=== PATIENT | male | born 1960 | race Caucasian/White ===

== ENCOUNTER → 2018-03-24 09:42 | Outpatient (CLI) | payer OTHER, SELFPAY ==
[2018-03-24 09:50] LABS: Bacteria Urine None Seen; RBC Urine None Seen (0-5/HPF); WBC Urine None Seen (0-5/HPF)
[2018-03-24 10:25] LABS: INR 1.8 (0.9-1.3); Prothrombin Time 19.4 SECONDS (10.1-12.7)
[2018-03-24 10:25] LABS: Add Manual Diff / Slide Review NO; Basophils Percent Auto 0.9 % (0-2); Eosinophils Percent Auto 0.8 % (2-4); Hematocrit 39.5 % (41-53); Hemoglobin 12.9 g/dL (13.5-17.5); Lymphocytes Percent Auto 21.8 % (25-40); Mean Corpuscular HGB Conc 32.6 % (30-36); Mean Corpuscular Hemoglobin 26.2 PG (26-34); Mean Corpuscular Volume 80.2 fL (80-100); Monocytes Percent Auto 13.1 % (3-14); Neutrophils Absolute Auto 2800 /uL (3000-5900); Neutrophils Percent Auto 63.4 % (50-75); Platelet Count 254 X10^3/uL (150-400); Red Blood Cell Count 4.92 X10^6/uL (4.5-5.9); Red Cell Distribution Width 14.3 % (11.6-14.8); White Blood Cell Count 4.5 X10^3/uL (4.5-11.0)
[2018-03-24 10:36] LABS: Appearance Urine UA CLEAR; Bilirubin Urine UA NEGATIVE (NEGATIVE); Color Urine UA YELLOW; Glucose Urine UA NEGATIVE (Normal); Ketones Urine UA NEGATIVE (NEGATIVE); Leukocyte Esterase Urine UA NEGATIVE (NEGATIVE); Nitrite Urine UA Negative (Negative); Occult Blood Urine UA TRACE-INTACT (Negative); Protein Urine UA NEGATIVE (Negative); Specific Gravity Urine UA 1.015 (1.000-1.035); Urobilinogen Urine UA 0.2 E.U./dL (0.2)
[2018-03-24 10:40] LABS: Alanine Aminotransferase 41 IU/L (21-72); Albumin 3.9 g/dL (3.5-5.0); Albumin Globulin Ratio 1.3 (1.0-2.8); Alkaline Phosphatase 55 U/L (38-126); Aspartate Aminotransferase 34 IU/L (17-59); BUN Creatinine Ratio 19.5 (6-22); Bilirubin Total 0.4 mg/dL (0.2-1.3); Blood Urea Nitrogen 41 mg/dL (9-20); Carbon Dioxide 28 mmol/L (22-32); Chloride 103 mmol/L (98-107); Estimated Glomerular Filt Rate 32.7 mL/min (>60); Globulin 2.9 g/dL (1.7-4.1); Glucose 95 mg/dL (70-100); HEMOLYSIS < 15 (0-50); Potassium 4.3 mmol/L (3.4-5.1); Sodium 139 mmol/L (137-145); Total Protein 6.8 g/dL (6.3-8.2)
[2018-03-24 10:42] LABS: Creatinine Urine Random 75.5 mg/dL
[2018-03-24 10:57] LABS: Protein (Total) Urine Random 25 mg/dL (0-12); Protein Creatinine Ratio Urine 0.33 GRAM/24H
[2018-03-27 11:05] LABS: Sirolimus 4.2 mcg/L (3.0-18.0)
== END ==
PROVIDERS: PCP Internal Medicine Nephrology; Visit Provider Internal Medicine Nephrology
DX: N18.3 Chronic kidney disease, stage 3 (moderate) (principal); D68.59 Other primary thrombophilia; Z94.0 Kidney transplant status
CPT/HCPCS: 36415; 80053; 80299; 81001; 82570; 84156; 85025; 85610; 87086

== ENCOUNTER → 2022-01-03 07:45 | Outpatient (CLI) | payer OTHER, SELFPAY ==
[2022-01-03 08:37] LABS: Add Manual Diff / Slide Review NO; Basophils Absolute Auto 0 /uL (0-100); Basophils Percent Auto 0.9 % (0-2); Eosinophils Absolute Auto 100 /uL (0-450); Eosinophils Percent Auto 1.3 % (2-4); Hemoglobin 12.7 g/dL (13.5-17.5); Lymphocytes Absolute Auto 1700 /uL (1100-4500); Mean Corpuscular HGB Conc 33.5 % (30-36); Mean Corpuscular Hemoglobin 27.7 PG (26-34); Mean Corpuscular Volume 82.7 fL (80-100); Monocytes Absolute Auto 800 /uL (0-900); Monocytes Percent Auto 14.2 % (3-14); Neutrophils Absolute Auto 2800 /uL (1500-7000); Neutrophils Percent Auto 52.6 % (50-75); Platelet Count 241 X10^3/uL (150-400); Red Cell Distribution Width 13.6 % (11.6-14.8); White Blood Cell Count 5.4 X10^3/uL (4.5-11.0)
[2022-01-03 08:41] LABS: INR 2.1 (0.9-1.3); Prothrombin Time 23.9 SECONDS (10.1-12.7)
[2022-01-03 09:20] LABS: Albumin 4.4 g/dL (3.5-5.0); BUN Creatinine Ratio 21.7 (6-22); Blood Urea Nitrogen 51 mg/dL (9-20); Carbon Dioxide 26 mmol/L (22-32); Chloride 104 mmol/L (98-107); Estimated Glomerular Filt Rate 28.3 mL/min (>60); Glucose 101 mg/dL (80-110); HEMOLYSIS < 15 (0-50); Phosphorous 3.4 mg/dL (2.3-3.7); Potassium 3.7 mmol/L (3.4-5.1); Sodium 137 mmol/L (137-145)
[2022-01-03 09:32] LABS: Vitamin D 25 Hydroxy (D3) 60.4 ng/mL (30.0-100.0)
[2022-01-03 10:36] LABS: Appearance Urine UA CLEAR; Bilirubin Urine UA NEGATIVE (NEGATIVE); Color Urine UA YELLOW; Glucose Urine UA NEGATIVE (Negative); Ketones Urine UA NEGATIVE (NEGATIVE); Leukocyte Esterase Urine UA NEGATIVE (NEGATIVE); Nitrite Urine UA NEGATIVE (Negative); Occult Blood Urine UA TRACE-INTACT (Negative); Protein Urine UA TRACE (Negative); Specific Gravity Urine UA 1.015 (1.000-1.035); Urobilinogen Urine UA 0.2 E.U./dL (0.2); pH Urine UA 5.5 (4.5-8.0)
[2022-01-03 10:58] LABS: Bacteria Urine None Seen; Culture Indicated Urine Cult Not Indicated; RBC Urine 1-5/HPF (0-5/HPF); WBC Urine None Seen (0-5/HPF)
[2022-01-03 13:05] LABS: Creatinine Urine Random 77.6 mg/dL; Protein (Total) Urine Random 33 mg/dL (0-12); Protein Creatinine Ratio Urine 0.42 GRAM/24H
[2022-01-03 16:37] LABS: Sirolimus 3.7 ng/mL (3.0-20.0)
[2022-01-04 06:15] LABS: Parathyroid Hormone Int 68 pg/mL (15-65)
== END ==
PROVIDERS: PCP Internal Medicine Nephrology; Referring Provider Internal Medicine Nephrology; Visit Provider Internal Medicine Nephrology
DX: Z94.0 Kidney transplant status (principal); N25.81 Secondary hyperparathyroidism of renal origin; D68.59 Other primary thrombophilia
CPT/HCPCS: 36415; 80069; 80195; 81001; 82306; 82570; 83970; 84156; 85025; 85610

== ENCOUNTER → 2022-03-07 09:33 | Outpatient (CLI) | payer OTHER, SELFPAY ==
[2022-03-07 10:39] LABS: Add Manual Diff / Slide Review NO; Basophils Absolute Auto 0 /uL (0-100); Basophils Percent Auto 0.7 % (0-2); Eosinophils Absolute Auto 100 /uL (0-450); Eosinophils Percent Auto 1.7 % (2-4); Hemoglobin 13.2 g/dL (13.5-17.5); Lymphocytes Absolute Auto 1400 /uL (1100-4500); Lymphocytes Percent Auto 28.3 % (25-40); Mean Corpuscular Hemoglobin 27.3 PG (26-34); Mean Corpuscular Volume 82.7 fL (80-100); Monocytes Absolute Auto 700 /uL (0-900); Monocytes Percent Auto 14.1 % (3-14); Neutrophils Absolute Auto 2700 /uL (1500-7000); Neutrophils Percent Auto 55.2 % (50-75); Platelet Count 241 X10^3/uL (150-400); Red Blood Cell Count 4.84 X10^6/uL (4.5-5.9); White Blood Cell Count 4.9 X10^3/uL (4.5-11.0)
[2022-03-07 10:50] LABS: Albumin 4.3 g/dL (3.5-5.0); BUN Creatinine Ratio 18.1 (6-22); Blood Urea Nitrogen 42 mg/dL (9-20); Calcium 8.9 mg/dL (8.4-10.2); Carbon Dioxide 28 mmol/L (22-32); Chloride 102 mmol/L (98-107); Estimated Glomerular Filt Rate 31 mL/min (>60); Glucose 96 mg/dL (80-110); HEMOLYSIS < 15 (0-50); Phosphorous 2.7 mg/dL (2.3-3.7); Potassium 3.8 mmol/L (3.4-5.1); Sodium 133 mmol/L (137-145)
[2022-03-07 10:59] LABS: Appearance Urine UA CLEAR; Bilirubin Urine UA NEGATIVE (NEGATIVE); Color Urine UA YELLOW; Glucose Urine UA NEGATIVE (Negative); Ketones Urine UA NEGATIVE (NEGATIVE); Leukocyte Esterase Urine UA NEGATIVE (NEGATIVE); Nitrite Urine UA NEGATIVE (Negative); Occult Blood Urine UA TRACE-INTACT (Negative); Protein Urine UA TRACE (Negative); Urobilinogen Urine UA 0.2 E.U./dL (0.2); pH Urine UA 5.5 (4.5-8.0)
[2022-03-07 11:01] LABS: INR 2.5 (0.9-1.3); Prothrombin Time 28.4 SECONDS (10.1-12.7)
[2022-03-07 11:27] LABS: Creatinine Urine Random 76.7 mg/dL
[2022-03-07 11:32] LABS: Microalbumi Creatinin Ratio Ur 108.2 ug/mg CR (<30); Microalbumin Urine Random 8.3 mg/dL (0-1.6)
[2022-03-07 11:49] LABS: Bacteria Urine None Seen; Culture Indicated Urine Cult Not Indicated; RBC Urine None Seen (0-5/HPF); Squamous Epithelial Cell Urine 0-1 /HPF (0-5/HPF); WBC Urine None Seen (0-5/HPF)
[2022-03-07 15:12] LABS: Vitamin D 25 Hydroxy (D3) 60.9 ng/mL (30.0-100.0)
[2022-03-08 07:36] LABS: Parathyroid Hormone Int 56 pg/mL (15-65)
[2022-03-08 10:02] LABS: Sirolimus 3.3 ng/mL (3.0-20.0)
== END ==
PROVIDERS: PCP Internal Medicine Nephrology; Referring Provider Internal Medicine Nephrology; Visit Provider Internal Medicine Nephrology
DX: Z94.0 Kidney transplant status (principal); N25.81 Secondary hyperparathyroidism of renal origin; D68.59 Other primary thrombophilia
CPT/HCPCS: 36415; 80069; 80195; 81001; 82043; 82306; 82570; 83970; 85025; 85610

== ENCOUNTER → 2022-06-16 07:31 | Outpatient (CLI) | payer OTHER, SELFPAY ==
[2022-06-16 10:31] LABS: Add Manual Diff / Slide Review NO; Basophils Absolute Auto 100 /uL (0-100); Eosinophils Absolute Auto 100 /uL (0-450); Eosinophils Percent Auto 1.5 % (2-4); Hematocrit 38.7 % (41-53); Lymphocytes Absolute Auto 1500 /uL (1100-4500); Lymphocytes Percent Auto 21.7 % (25-40); Mean Corpuscular HGB Conc 33.5 % (30-36); Mean Corpuscular Hemoglobin 27.3 PG (26-34); Mean Corpuscular Volume 81.5 fL (80-100); Monocytes Absolute Auto 900 /uL (0-900); Monocytes Percent Auto 12.5 % (3-14); Neutrophils Absolute Auto 4300 /uL (1500-7000); Neutrophils Percent Auto 63.3 % (50-75); Platelet Count 273 X10^3/uL (150-400); Red Blood Cell Count 4.75 X10^6/uL (4.5-5.9); Red Cell Distribution Width 13.8 % (11.6-14.8); White Blood Cell Count 6.8 X10^3/uL (4.5-11.0)
[2022-06-16 10:36] LABS: INR 1.1 (0.9-1.3); Prothrombin Time 12.1 SECONDS (10.1-12.7)
[2022-06-16 10:43] LABS: Appearance Urine UA CLEAR; Bilirubin Urine UA NEGATIVE (NEGATIVE); Color Urine UA YELLOW; Glucose Urine UA NEGATIVE (Negative); Ketones Urine UA NEGATIVE (NEGATIVE); Leukocyte Esterase Urine UA NEGATIVE (NEGATIVE); Nitrite Urine UA NEGATIVE (Negative); Occult Blood Urine UA TRACE-INTACT (Negative); Protein Urine UA TRACE (Negative); Urobilinogen Urine UA 0.2 E.U./dL (0.2); pH Urine UA 5.5 (4.5-8.0)
[2022-06-16 11:24] LABS: Creatinine Urine Random 64.6 mg/dL; Protein (Total) Urine Random 34 mg/dL (0-12); Protein Creatinine Ratio Urine 0.52 GRAM/24H
[2022-06-16 11:26] LABS: Bacteria Urine Occasional (0-1); Culture Indicated Urine Cult Not Indicated; RBC Urine None Seen (0-5/HPF); Squamous Epithelial Cell Urine None Seen (0-5/HPF); WBC Urine None Seen (0-5/HPF)
[2022-06-16 11:29] LABS: BUN Creatinine Ratio 20.1 (6-22); Blood Urea Nitrogen 45 mg/dL (9-20); Calcium 9.3 mg/dL (8.4-10.2); Carbon Dioxide 25 mmol/L (22-32); Chloride 101 mmol/L (98-107); Estimated Glomerular Filt Rate 33 mL/min (>60); Glucose 91 mg/dL (80-110); HEMOLYSIS < 15 (0-50); Potassium 3.8 mmol/L (3.4-5.1); Sodium 137 mmol/L (137-145)
[2022-06-17 09:30] LABS: Sirolimus 5.9 ng/mL (3.0-20.0)
== END ==
PROVIDERS: PCP Internal Medicine Nephrology; Referring Provider Internal Medicine Nephrology; Visit Provider Internal Medicine Nephrology
DX: Z94.0 Kidney transplant status (principal); D68.59 Other primary thrombophilia
CPT/HCPCS: 36415; 80069; 80195; 81001; 82570; 84156; 85025; 85610

== ENCOUNTER → 2022-07-14 09:43 | Outpatient (CLI) | payer OTHER, SELFPAY ==
[2022-07-14 10:49] LABS: Appearance Urine UA CLEAR; Bilirubin Urine UA NEGATIVE (NEGATIVE); Color Urine UA YELLOW; Glucose Urine UA NEGATIVE (Negative); Ketones Urine UA NEGATIVE (NEGATIVE); Leukocyte Esterase Urine UA NEGATIVE (NEGATIVE); Nitrite Urine UA NEGATIVE (Negative); Occult Blood Urine UA TRACE-INTACT (Negative); Protein Urine UA TRACE (Negative); Urobilinogen Urine UA 0.2 E.U./dL (0.2)
[2022-07-14 11:00] LABS: Add Manual Diff / Slide Review NO; Bacteria Urine Occasional (0-1); Basophils Absolute Auto 0 /uL (0-100); Basophils Percent Auto 0.7 % (0-2); Culture Indicated Urine Specimen Cultured; Eosinophils Absolute Auto 100 /uL (0-450); Eosinophils Percent Auto 1.4 % (2-4); Hemoglobin 12.9 g/dL (13.5-17.5); Lymphocytes Absolute Auto 1300 /uL (1100-4500); Lymphocytes Percent Auto 25.9 % (25-40); Mean Corpuscular HGB Conc 33.1 % (30-36); Mean Corpuscular Volume 81.6 fL (80-100); Monocytes Absolute Auto 700 /uL (0-900); Monocytes Percent Auto 14.3 % (3-14); Neutrophils Absolute Auto 2800 /uL (1500-7000); Neutrophils Percent Auto 57.7 % (50-75); Platelet Count 230 X10^3/uL (150-400); RBC Urine 0-1/HPF (0-5/HPF); Red Blood Cell Count 4.78 X10^6/uL (4.5-5.9); Red Cell Distribution Width 14.4 % (11.6-14.8); WBC Urine None Seen (0-5/HPF); White Blood Cell Count 4.9 X10^3/uL (4.5-11.0)
[2022-07-14 11:06] LABS: Albumin 4.1 g/dL (3.5-5.0); BUN Creatinine Ratio 18.5 (6-22); Blood Urea Nitrogen 42 mg/dL (9-20); Calcium 9.5 mg/dL (8.4-10.2); Carbon Dioxide 25 mmol/L (22-32); Chloride 102 mmol/L (98-107); Estimated Glomerular Filt Rate 32 mL/min (>60); Glucose 97 mg/dL (80-110); HEMOLYSIS < 15 (0-50); Phosphorous 3.4 mg/dL (2.3-3.7); Potassium 3.9 mmol/L (3.4-5.1); Sodium 137 mmol/L (137-145)
[2022-07-14 11:23] LABS: Vitamin D 25 Hydroxy (D3) 45.9 ng/mL (30.0-100.0)
[2022-07-14 11:36] LABS: Creatinine Urine Random 81.9 mg/dL; Protein (Total) Urine Random 31 mg/dL (0-12); Protein Creatinine Ratio Urine 0.37 GRAM/24H
[2022-07-15 07:59] LABS: Parathyroid Hormone Int 29 pg/mL (15-65)
[2022-07-15 15:09] LABS: Sirolimus 4.5 ng/mL (3.0-20.0)
== END ==
PROVIDERS: PCP Internal Medicine Nephrology; Referring Provider Internal Medicine Nephrology; Visit Provider Internal Medicine Nephrology
DX: N25.81 Secondary hyperparathyroidism of renal origin (principal); D68.59 Other primary thrombophilia; Z94.0 Kidney transplant status
CPT/HCPCS: 36415; 80069; 80195; 81001; 82306; 82570; 83970; 84156; 85025; 85610; 87086

== ENCOUNTER → 2022-09-08 07:35 | Outpatient (CLI) | payer OTHER, SELFPAY ==
[2022-09-08 09:05] LABS: Add Manual Diff / Slide Review NO; Basophils Absolute Auto 0 /uL (0-100); Basophils Percent Auto 0.6 % (0-2); Eosinophils Absolute Auto 100 /uL (0-450); Eosinophils Percent Auto 1.3 % (2-4); Hematocrit 39.5 % (41-53); Lymphocytes Absolute Auto 1700 /uL (1100-4500); Lymphocytes Percent Auto 30.3 % (25-40); Mean Corpuscular HGB Conc 32.8 % (30-36); Mean Corpuscular Hemoglobin 26.8 PG (26-34); Mean Corpuscular Volume 81.8 fL (80-100); Monocytes Absolute Auto 800 /uL (0-900); Monocytes Percent Auto 14.3 % (3-14); Neutrophils Absolute Auto 3000 /uL (1500-7000); Neutrophils Percent Auto 53.5 % (50-75); Platelet Count 229 X10^3/uL (150-400); Red Blood Cell Count 4.83 X10^6/uL (4.5-5.9); White Blood Cell Count 5.6 X10^3/uL (4.5-11.0)
[2022-09-08 09:11] LABS: INR 2.8 (0.9-1.3); Prothrombin Time 32.7 SECONDS (10.1-12.7)
[2022-09-08 09:20] LABS: BUN Creatinine Ratio 17.5 (6-22); Blood Urea Nitrogen 44 mg/dL (9-20); Calcium 9.1 mg/dL (8.4-10.2); Carbon Dioxide 27 mmol/L (22-32); Chloride 103 mmol/L (98-107); Estimated Glomerular Filt Rate 28 mL/min (>60); Glucose 96 mg/dL (80-110); HEMOLYSIS < 15 (0-50); Phosphorous 2.9 mg/dL (2.3-3.7); Sodium 138 mmol/L (137-145)
[2022-09-08 09:50] LABS: Creatinine Urine Random 95.8 mg/dL; Protein (Total) Urine Random 34 mg/dL (0-12); Protein Creatinine Ratio Urine 0.35 GRAM/24H
[2022-09-08 09:54] LABS: Appearance Urine UA CLEAR; Bilirubin Urine UA NEGATIVE (NEGATIVE); Color Urine UA YELLOW; Glucose Urine UA NEGATIVE (Negative); Ketones Urine UA NEGATIVE (NEGATIVE); Leukocyte Esterase Urine UA NEGATIVE (NEGATIVE); Nitrite Urine UA NEGATIVE (Negative); Occult Blood Urine UA TRACE-LYSED (Negative); Protein Urine UA 1+ (Negative); Urobilinogen Urine UA 0.2 E.U./dL (0.2); pH Urine UA 5.5 (4.5-8.0)
[2022-09-08 09:59] LABS: Bacteria Urine None Seen; Culture Indicated Urine Cult Not Indicated; RBC Urine None Seen (0-5/HPF); Urine Comments Microscopic Normal; WBC Urine None Seen (0-5/HPF)
[2022-09-09 09:12] LABS: Sirolimus 3.7 ng/mL (3.0-20.0)
== END ==
PROVIDERS: PCP Internal Medicine Nephrology; Referring Provider Internal Medicine Nephrology; Visit Provider Internal Medicine Nephrology
DX: Z94.0 Kidney transplant status (principal); N25.81 Secondary hyperparathyroidism of renal origin; D68.59 Other primary thrombophilia
CPT/HCPCS: 36415; 80069; 80195; 81001; 82570; 84156; 85025; 85610

== ENCOUNTER → 2022-10-19 08:27 | Outpatient (CLI) | payer OTHER, SELFPAY ==
[2022-10-19 09:23] LABS: Add Manual Diff / Slide Review NO; Basophils Absolute Auto 100 /uL (0-100); Basophils Percent Auto 0.9 % (0-2); Eosinophils Absolute Auto 500 /uL (0-450); Eosinophils Percent Auto 7.5 % (2-4); Hematocrit 40.9 % (41-53); Hemoglobin 13.3 g/dL (13.5-17.5); Lymphocytes Absolute Auto 1900 /uL (1100-4500); Lymphocytes Percent Auto 30.8 % (25-40); Mean Corpuscular HGB Conc 32.6 % (30-36); Mean Corpuscular Hemoglobin 26.8 PG (26-34); Monocytes Absolute Auto 900 /uL (0-900); Monocytes Percent Auto 14.8 % (3-14); Neutrophils Absolute Auto 2800 /uL (1500-7000); Platelet Count 265 X10^3/uL (150-400); Red Blood Cell Count 4.99 X10^6/uL (4.5-5.9); Red Cell Distribution Width 14.7 % (11.6-14.8)
[2022-10-19 09:29] LABS: INR 1.7 (0.9-1.3)
[2022-10-19 09:39] LABS: Appearance Urine UA CLEAR; Bilirubin Urine UA NEGATIVE (NEGATIVE); Color Urine UA YELLOW; Glucose Urine UA NEGATIVE (Negative); Ketones Urine UA NEGATIVE (NEGATIVE); Leukocyte Esterase Urine UA NEGATIVE (NEGATIVE); Nitrite Urine UA NEGATIVE (Negative); Occult Blood Urine UA TRACE-LYSED (Negative); Protein Urine UA TRACE (Negative); Urobilinogen Urine UA 0.2 E.U./dL (0.2)
[2022-10-19 09:40] LABS: BUN Creatinine Ratio 19.7 (6-22); Blood Urea Nitrogen 48 mg/dL (9-20); Calcium 9.6 mg/dL (8.4-10.2); Carbon Dioxide 29 mmol/L (22-32); Chloride 101 mmol/L (98-107); Estimated Glomerular Filt Rate 29 mL/min (>60); Glucose 88 mg/dL (80-110); HEMOLYSIS < 15 (0-50); Phosphorous 3.1 mg/dL (2.3-3.7); Sodium 137 mmol/L (137-145)
[2022-10-19 09:57] LABS: Bacteria Urine None Seen; Culture Indicated Urine Cult Not Indicated; RBC Urine None Seen (0-5/HPF); Urine Comments Microscopic Normal; WBC Urine None Seen (0-5/HPF)
[2022-10-19 16:08] LABS: Creatinine Urine Random 73.5 mg/dL; Protein (Total) Urine Random 33 mg/dL (0-12); Protein Creatinine Ratio Urine 0.44 GRAM/24H
[2022-10-20 10:35] LABS: Sirolimus 5.4 ng/mL (3.0-20.0)
[2022-10-21 17:48] LABS: Albumin 4.3 g/dL (3.5-5.0)
== END ==
PROVIDERS: PCP Internal Medicine Nephrology; Referring Provider Internal Medicine Nephrology; Visit Provider Internal Medicine Nephrology
DX: N25.81 Secondary hyperparathyroidism of renal origin (principal); D68.59 Other primary thrombophilia; Z94.0 Kidney transplant status
CPT/HCPCS: 36415; 80069; 80195; 81001; 82570; 84156; 85025; 85610

== ENCOUNTER → 2022-11-22 07:39 | Outpatient (CLI) | payer OTHER, SELFPAY ==
[2022-11-22 08:29] LABS: Appearance Urine UA CLEAR; Bilirubin Urine UA NEGATIVE (NEGATIVE); Color Urine UA YELLOW; Glucose Urine UA NEGATIVE (Negative); Ketones Urine UA NEGATIVE (NEGATIVE); Leukocyte Esterase Urine UA NEGATIVE (NEGATIVE); Nitrite Urine UA NEGATIVE (Negative); Occult Blood Urine UA TRACE-INTACT (Negative); Protein Urine UA TRACE (Negative); Specific Gravity Urine UA 1.015 (1.000-1.035); Urobilinogen Urine UA 0.2 E.U./dL (0.2)
[2022-11-22 08:36] LABS: Bacteria Urine None Seen; Culture Indicated Urine Cult Not Indicated; RBC Urine None Seen (0-5/HPF); Urine Comments Microscopic Normal; WBC Urine None Seen (0-5/HPF)
[2022-11-22 09:06] LABS: Creatinine Urine Random 69.1 mg/dL; Protein (Total) Urine Random 38 mg/dL (0-12); Protein Creatinine Ratio Urine 0.54 GRAM/24H
[2022-11-22 09:28] LABS: Add Manual Diff / Slide Review NO; Basophils Absolute Auto 0 /uL (0-100); Basophils Percent Auto 0.7 % (0-2); Eosinophils Absolute Auto 100 /uL (0-450); Eosinophils Percent Auto 1.3 % (2-4); Hematocrit 39.9 % (41-53); Hemoglobin 13.1 g/dL (13.5-17.5); Lymphocytes Absolute Auto 1600 /uL (1100-4500); Mean Corpuscular HGB Conc 32.8 % (30-36); Mean Corpuscular Hemoglobin 26.8 PG (26-34); Mean Corpuscular Volume 81.7 fL (80-100); Monocytes Absolute Auto 700 /uL (0-900); Monocytes Percent Auto 11.8 % (3-14); Neutrophils Absolute Auto 3400 /uL (1500-7000); Neutrophils Percent Auto 59.2 % (50-75); Platelet Count 271 X10^3/uL (150-400); Red Blood Cell Count 4.89 X10^6/uL (4.5-5.9); Red Cell Distribution Width 15.1 % (11.6-14.8); White Blood Cell Count 5.8 X10^3/uL (4.5-11.0)
[2022-11-22 09:46] LABS: Albumin 4.3 g/dL (3.5-5.0); HEMOLYSIS < 15 (0-50); INR 2.2 (0.9-1.3); Prothrombin Time 25.8 SECONDS (10.1-12.7)
[2022-11-22 10:02] LABS: Vitamin D 25 Hydroxy (D3) 53.4 ng/mL (30.0-100.0)
[2022-11-23 09:26] LABS: Parathyroid Hormone Int 48 pg/mL (15-65)
[2022-11-23 17:36] LABS: Sirolimus 4.9 ng/mL (3.0-20.0)
[2022-11-23 17:43] LABS: BUN Creatinine Ratio 22.1 (6-22); Blood Urea Nitrogen 52 mg/dL (9-20); Calcium 9.5 mg/dL (8.4-10.2); Carbon Dioxide 26 mmol/L (22-32); Chloride 102 mmol/L (98-107); Estimated Glomerular Filt Rate 31 mL/min (>60); Glucose 95 mg/dL (80-110); Potassium 3.7 mmol/L (3.4-5.1); Sodium 138 mmol/L (137-145)
== END ==
PROVIDERS: PCP Internal Medicine Nephrology; Referring Provider Internal Medicine Nephrology; Visit Provider Internal Medicine Nephrology
DX: Z94.0 Kidney transplant status (principal); N25.81 Secondary hyperparathyroidism of renal origin; D68.59 Other primary thrombophilia
CPT/HCPCS: 36415; 80069; 80076; 80195; 81001; 82306; 82570; 83970; 84156; 85025; 85610

== ENCOUNTER → 2023-04-11 07:32 | Outpatient (CLI) | payer OTHER, SELFPAY ==
[2023-04-11 07:59] LABS: Add Manual Diff / Slide Review NO; Basophils Absolute Auto 100 /uL (0-100); Basophils Percent Auto 1.4 % (0-2); Eosinophils Absolute Auto 100 /uL (0-450); Eosinophils Percent Auto 2.6 % (2-4); Hematocrit 40.4 % (41-53); Hemoglobin 13.3 g/dL (13.5-17.5); Lymphocytes Absolute Auto 1600 /uL (1100-4500); Lymphocytes Percent Auto 34.1 % (25-40); Mean Corpuscular HGB Conc 32.9 % (30-36); Mean Corpuscular Hemoglobin 26.8 PG (26-34); Mean Corpuscular Volume 81.4 fL (80-100); Monocytes Absolute Auto 600 /uL (0-900); Monocytes Percent Auto 13.6 % (3-14); Neutrophils Absolute Auto 2200 /uL (1500-7000); Neutrophils Percent Auto 48.3 % (50-75); Platelet Count 233 X10^3/uL (150-400); Red Blood Cell Count 4.96 X10^6/uL (4.5-5.9); Red Cell Distribution Width 14.7 % (11.6-14.8); White Blood Cell Count 4.6 X10^3/uL (4.5-11.0)
[2023-04-11 08:14] LABS: Appearance Urine UA CLEAR; Bilirubin Urine UA NEGATIVE (NEGATIVE); Color Urine UA YELLOW; Glucose Urine UA NEGATIVE (Negative); Ketones Urine UA NEGATIVE (NEGATIVE); Leukocyte Esterase Urine UA NEGATIVE (NEGATIVE); Nitrite Urine UA NEGATIVE (Negative); Occult Blood Urine UA TRACE-INTACT (Negative); Protein Urine UA TRACE (Negative); Urobilinogen Urine UA 0.2 E.U./dL (0.2); pH Urine UA 5.5 (4.5-8.0)
[2023-04-11 08:16] LABS: INR 2.1 (0.9-1.3); Prothrombin Time 24.3 SECONDS (10.1-12.7)
[2023-04-11 09:00] LABS: Bacteria Urine None Seen; Culture Indicated Urine Cult Not Indicated; RBC Urine None Seen (0-5/HPF); Squamous Epithelial Cell Urine None Seen (0-5/HPF); Urine Comments Microscopic Normal; WBC Urine None Seen (0-5/HPF)
[2023-04-11 09:01] LABS: Albumin 4.1 g/dL (3.5-5.0); BUN Creatinine Ratio 17.8 (6-22); Blood Urea Nitrogen 46 mg/dL (9-20); Calcium 9.4 mg/dL (8.4-10.2); Carbon Dioxide 28 mmol/L (22-32); Chloride 102 mmol/L (98-107); Estimated Glomerular Filt Rate 27 mL/min (>60); Glucose 99 mg/dL (80-110); HEMOLYSIS < 15 (0-50); Phosphorous 3.4 mg/dL (2.3-3.7); Potassium 3.6 mmol/L (3.4-5.1); Sodium 137 mmol/L (137-145)
[2023-04-11 09:04] LABS: Creatinine Urine Random 74.4 mg/dL; Protein (Total) Urine Random 30 mg/dL (0-12)
[2023-05-01 13:05] LABS: Sirolimus 6.1
== END ==
PROVIDERS: PCP Internal Medicine Nephrology; Referring Provider Internal Medicine Nephrology; Visit Provider Internal Medicine Nephrology
DX: Z94.0 Kidney transplant status (principal); D68.59 Other primary thrombophilia
CPT/HCPCS: 36415; 80069; 80195; 81001; 82570; 84156; 85025; 85610

== ENCOUNTER → 2023-06-08 09:55 | Outpatient (CLI) | payer OTHER, SELFPAY ==
[2023-06-08 10:47] LABS: Add Manual Diff / Slide Review NO; Basophils Absolute Auto 0 /uL (0-100); Basophils Percent Auto 0.7 % (0-2); Eosinophils Absolute Auto 100 /uL (0-450); Eosinophils Percent Auto 1.4 % (2-4); Hematocrit 41.3 % (41-53); Hemoglobin 13.6 g/dL (13.5-17.5); Lymphocytes Absolute Auto 1700 /uL (1100-4500); Lymphocytes Percent Auto 31.1 % (25-40); Mean Corpuscular HGB Conc 32.9 % (30-36); Mean Corpuscular Hemoglobin 27.4 PG (26-34); Mean Corpuscular Volume 83.1 fL (80-100); Monocytes Absolute Auto 800 /uL (0-900); Monocytes Percent Auto 15.6 % (3-14); Neutrophils Absolute Auto 2700 /uL (1500-7000); Neutrophils Percent Auto 51.2 % (50-75); Platelet Count 252 X10^3/uL (150-400); Red Blood Cell Count 4.97 X10^6/uL (4.5-5.9); Red Cell Distribution Width 14.9 % (11.6-14.8); White Blood Cell Count 5.4 X10^3/uL (4.5-11.0)
[2023-06-08 10:53] LABS: INR 2.8 (0.9-1.3); Prothrombin Time 32.4 SECONDS (10.1-12.7)
[2023-06-08 11:00] LABS: Creatinine Urine Random 78.2 mg/dL; Protein (Total) Urine Random 46 mg/dL (0-12); Protein Creatinine Ratio Urine 0.58 GRAM/24H
[2023-06-08 11:05] LABS: Albumin 4.3 g/dL (3.5-5.0); BUN Creatinine Ratio 18.7 (6-22); Blood Urea Nitrogen 41 mg/dL (9-20); Calcium 9.4 mg/dL (8.4-10.2); Carbon Dioxide 29 mmol/L (22-32); Chloride 102 mmol/L (98-107); Estimated Glomerular Filt Rate 33 mL/min (>60); Glucose 98 mg/dL (80-110); HEMOLYSIS < 15 (0-50); Phosphorous 2.6 mg/dL (2.3-3.7); Potassium 3.6 mmol/L (3.4-5.1); Sodium 137 mmol/L (137-145)
[2023-06-08 11:08] LABS: Appearance Urine UA CLEAR; Bilirubin Urine UA NEGATIVE (NEGATIVE); Color Urine UA YELLOW; Glucose Urine UA NEGATIVE (Negative); Ketones Urine UA NEGATIVE (NEGATIVE); Leukocyte Esterase Urine UA NEGATIVE (NEGATIVE); Nitrite Urine UA NEGATIVE (Negative); Occult Blood Urine UA NEGATIVE (Negative); Protein Urine UA TRACE (Negative); Specific Gravity Urine UA 1.015 (1.000-1.035); Urobilinogen Urine UA 0.2 E.U./dL (0.2)
[2023-06-08 11:53] LABS: Bacteria Urine Occasional (0-1); Culture Indicated Urine Cult Not Indicated; RBC Urine None Seen (0-5/HPF); Squamous Epithelial Cell Urine None Seen (0-5/HPF); WBC Urine None Seen (0-5/HPF)
== END ==
PROVIDERS: PCP Internal Medicine Nephrology; Referring Provider Internal Medicine Nephrology; Visit Provider Internal Medicine Nephrology
DX: Z94.0 Kidney transplant status (principal); D68.59 Other primary thrombophilia
CPT/HCPCS: 36415; 80069; 80195; 81001; 82570; 84156; 85025; 85610

== ENCOUNTER → 2023-07-27 09:41 | Outpatient (CLI) | payer OTHER, SELFPAY ==
[2023-07-27 10:19] LABS: INR 2.1 (0.9-1.3); Prothrombin Time 24.8 SECONDS (10.1-12.7)
[2023-07-27 10:22] LABS: Add Manual Diff / Slide Review NO; Basophils Absolute Auto 0 /uL (0-100); Basophils Percent Auto 0.9 % (0-2); Eosinophils Absolute Auto 100 /uL (0-450); Hematocrit 40.1 % (41-53); Hemoglobin 13.1 g/dL (13.5-17.5); Lymphocytes Absolute Auto 1500 /uL (1100-4500); Lymphocytes Percent Auto 28.2 % (25-40); Mean Corpuscular HGB Conc 32.6 % (30-36); Mean Corpuscular Hemoglobin 26.9 PG (26-34); Mean Corpuscular Volume 82.6 fL (80-100); Monocytes Absolute Auto 900 /uL (0-900); Monocytes Percent Auto 15.8 % (3-14); Neutrophils Absolute Auto 2900 /uL (1500-7000); Neutrophils Percent Auto 54.1 % (50-75); Platelet Count 240 X10^3/uL (150-400); Red Blood Cell Count 4.85 X10^6/uL (4.5-5.9); Red Cell Distribution Width 14.7 % (11.6-14.8); White Blood Cell Count 5.4 X10^3/uL (4.5-11.0)
[2023-07-27 10:52] LABS: Appearance Urine UA CLEAR; Bilirubin Urine UA NEGATIVE (NEGATIVE); Color Urine UA YELLOW; Glucose Urine UA NEGATIVE (Negative); Ketones Urine UA NEGATIVE (NEGATIVE); Leukocyte Esterase Urine UA NEGATIVE (NEGATIVE); Nitrite Urine UA NEGATIVE (Negative); Occult Blood Urine UA NEGATIVE (Negative); Protein Urine UA TRACE (Negative); Urobilinogen Urine UA 0.2 E.U./dL (0.2)
[2023-07-27 10:57] LABS: Bacteria Urine None Seen; Culture Indicated Urine Cult Not Indicated; RBC Urine None Seen (0-5/HPF); Squamous Epithelial Cell Urine None Seen (0-5/HPF); WBC Urine None Seen (0-5/HPF)
[2023-07-27 11:01] LABS: Protein (Total) Urine Random 38 mg/dL (0-12)
[2023-07-27 11:09] LABS: Creatinine Urine Random 81.1 mg/dL; Protein Creatinine Ratio Urine 0.46 GRAM/24H
[2023-07-27 12:00] LABS: Albumin 4.1 g/dL (3.5-5.0); BUN Creatinine Ratio 22.3 (6-22); Blood Urea Nitrogen 46 mg/dL (9-20); Calcium 9.8 mg/dL (8.4-10.2); Carbon Dioxide 25 mmol/L (22-32); Chloride 104 mmol/L (98-107); Estimated Glomerular Filt Rate 36 mL/min (>60); Glucose 89 mg/dL (80-110); HEMOLYSIS < 15 (0-50); Phosphorous 2.6 mg/dL (2.3-3.7); Potassium 3.8 mmol/L (3.4-5.1); Sodium 137 mmol/L (137-145)
[2023-08-10 12:16] LABS: Sirolimus 4.8
== END ==
PROVIDERS: PCP Internal Medicine Nephrology; Referring Provider Internal Medicine Nephrology; Visit Provider Internal Medicine Nephrology
DX: Z94.0 Kidney transplant status (principal); D68.59 Other primary thrombophilia
CPT/HCPCS: 36415; 80069; 80195; 81001; 82570; 84156; 85025; 85610

== ENCOUNTER → 2023-09-07 07:31 | Outpatient (CLI) | payer OTHER, SELFPAY ==
[2023-09-07 08:39] LABS: INR 2.5 (0.9-1.3)
[2023-09-07 08:46] LABS: Albumin 4.3 g/dL (3.5-5.0); BUN Creatinine Ratio 18.1 (6-22); Blood Urea Nitrogen 39 mg/dL (9-20); Calcium 9.6 mg/dL (8.4-10.2); Carbon Dioxide 27 mmol/L (22-32); Chloride 100 mmol/L (98-107); Estimated Glomerular Filt Rate 34 mL/min (>60); Glucose 93 mg/dL (80-110); HEMOLYSIS < 15 (0-50); Phosphorous 2.6 mg/dL (2.3-3.7); Potassium 3.6 mmol/L (3.4-5.1); Sodium 135 mmol/L (137-145)
[2023-09-07 08:55] LABS: Add Manual Diff / Slide Review NO; Basophils Absolute Auto 0 /uL (0-100); Basophils Percent Auto 0.7 % (0-2); Eosinophils Absolute Auto 100 /uL (0-450); Eosinophils Percent Auto 1.2 % (2-4); Hematocrit 41.1 % (41-53); Hemoglobin 13.6 g/dL (13.5-17.5); Lymphocytes Absolute Auto 2000 /uL (1100-4500); Lymphocytes Percent Auto 38.2 % (25-40); Mean Corpuscular Volume 81.8 fL (80-100); Monocytes Absolute Auto 700 /uL (0-900); Monocytes Percent Auto 13.4 % (3-14); Neutrophils Absolute Auto 2400 /uL (1500-7000); Neutrophils Percent Auto 46.5 % (50-75); Platelet Count 226 X10^3/uL (150-400); Red Blood Cell Count 5.03 X10^6/uL (4.5-5.9); Red Cell Distribution Width 14.4 % (11.6-14.8); White Blood Cell Count 5.3 X10^3/uL (4.5-11.0)
[2023-09-07 08:59] LABS: Appearance Urine UA CLEAR; Bilirubin Urine UA NEGATIVE (NEGATIVE); Color Urine UA YELLOW; Glucose Urine UA NEGATIVE (Negative); Ketones Urine UA NEGATIVE (NEGATIVE); Leukocyte Esterase Urine UA NEGATIVE (NEGATIVE); Nitrite Urine UA NEGATIVE (Negative); Occult Blood Urine UA NEGATIVE (Negative); Protein Urine UA TRACE (Negative); Urobilinogen Urine UA 0.2 E.U./dL (0.2); pH Urine UA 6.5 (4.5-8.0)
[2023-09-07 09:05] LABS: Bacteria Urine None Seen; Culture Indicated Urine Cult Not Indicated; RBC Urine None Seen (0-5/HPF); Squamous Epithelial Cell Urine None Seen (0-5/HPF); WBC Urine None Seen (0-5/HPF)
[2023-09-07 09:29] LABS: Creatinine Urine Random 58.1 mg/dL; Protein (Total) Urine Random 42 mg/dL (0-12); Protein Creatinine Ratio Urine 0.72 GRAM/24H
[2023-09-20 12:26] LABS: Sirolimus 4.7
== END ==
PROVIDERS: PCP Internal Medicine Nephrology; Referring Provider Internal Medicine Nephrology; Visit Provider Internal Medicine Nephrology
DX: Z94.0 Kidney transplant status (principal); D68.59 Other primary thrombophilia
CPT/HCPCS: 36415; 80069; 80195; 81001; 82570; 84156; 85025; 85610

== ENCOUNTER → 2023-11-22 09:47 | Outpatient (CLI) | payer OTHER, SELFPAY ==
[2023-11-22 10:34] LABS: Add Manual Diff / Slide Review NO; Basophils Absolute Auto 0 /uL (0-100); Basophils Percent Auto 0.5 % (0-2); Eosinophils Absolute Auto 100 /uL (0-450); Eosinophils Percent Auto 0.9 % (2-4); Hematocrit 37.6 % (41-53); Hemoglobin 12.3 g/dL (13.5-17.5); Lymphocytes Absolute Auto 1600 /uL (1100-4500); Lymphocytes Percent Auto 24.6 % (25-40); Mean Corpuscular HGB Conc 32.8 % (30-36); Mean Corpuscular Volume 82.5 fL (80-100); Monocytes Absolute Auto 1000 /uL (0-900); Monocytes Percent Auto 14.7 % (3-14); Neutrophils Absolute Auto 4000 /uL (1500-7000); Neutrophils Percent Auto 59.3 % (50-75); Platelet Count 355 X10^3/uL (150-400); Red Blood Cell Count 4.56 X10^6/uL (4.5-5.9); Red Cell Distribution Width 15.1 % (11.6-14.8); White Blood Cell Count 6.7 X10^3/uL (4.5-11.0)
[2023-11-22 10:44] LABS: INR 3.6 (0.9-1.3); Prothrombin Time 41.4 SECONDS (9.4-12.5)
[2023-11-22 10:56] LABS: BUN Creatinine Ratio 19.3 (6-22); Blood Urea Nitrogen 41 mg/dL (9-20); Calcium 9.5 mg/dL (8.4-10.2); Carbon Dioxide 26 mmol/L (22-32); Chloride 101 mmol/L (98-107); Estimated Glomerular Filt Rate 34 mL/min (>60); Glucose 103 mg/dL (80-110); HEMOLYSIS < 15 (0-50); Phosphorous 3.1 mg/dL (2.3-3.7); Potassium 3.9 mmol/L (3.4-5.1); Sodium 137 mmol/L (137-145)
[2023-11-22 12:02] LABS: Appearance Urine UA CLEAR; Bilirubin Urine UA NEGATIVE (NEGATIVE); Color Urine UA YELLOW; Glucose Urine UA NEGATIVE (Negative); Ketones Urine UA NEGATIVE (NEGATIVE); Leukocyte Esterase Urine UA NEGATIVE (NEGATIVE); Nitrite Urine UA NEGATIVE (Negative); Occult Blood Urine UA NEGATIVE (Negative); Protein Urine UA TRACE (Negative); Specific Gravity Urine UA 1.015 (1.000-1.035); Urobilinogen Urine UA 0.2 E.U./dL (0.2)
[2023-11-22 12:08] LABS: Urine Volume 10mL (spun)
[2023-11-22 12:09] LABS: Bacteria Urine None Seen; Culture Indicated Urine Cult Not Indicated; RBC Urine None Seen (0-5/HPF); Squamous Epithelial Cell Urine None Seen (0-5/HPF); WBC Urine None Seen (0-5/HPF)
[2023-11-22 18:35] LABS: Creatinine Urine Random 72.9 mg/dL; Protein (Total) Urine Random 41 mg/dL (0-12); Protein Creatinine Ratio Urine 0.56 GRAM/24H
[2023-12-11 11:06] LABS: Sirolimus 3.9
== END ==
PROVIDERS: PCP Internal Medicine Nephrology; Referring Provider Internal Medicine Nephrology; Visit Provider Internal Medicine Nephrology
DX: D68.59 Other primary thrombophilia (principal); Z94.0 Kidney transplant status
CPT/HCPCS: 36415; 80069; 80195; 81001; 82570; 84156; 85025; 85610

== ENCOUNTER → 2024-03-15 07:37 | Outpatient (CLI) | payer OTHER, SELFPAY ==
[2024-03-15 08:53] LABS: Add Manual Diff / Slide Review NO; Basophils Absolute Auto 0 /uL (0-100); Basophils Percent Auto 0.8 % (0-2); Eosinophils Absolute Auto 200 /uL (0-450); Eosinophils Percent Auto 3.1 % (2-4); Hematocrit 39.5 % (41-53); Lymphocytes Absolute Auto 1600 /uL (1100-4500); Lymphocytes Percent Auto 31.7 % (25-40); Mean Corpuscular Hemoglobin 27.7 PG (26-34); Monocytes Absolute Auto 800 /uL (0-900); Monocytes Percent Auto 14.8 % (3-14); Neutrophils Absolute Auto 2500 /uL (1500-7000); Neutrophils Percent Auto 49.6 % (50-75); Platelet Count 280 X10^3/uL (150-400); Red Cell Distribution Width 13.4 % (11.6-14.8); White Blood Cell Count 5.1 X10^3/uL (4.5-11.0)
[2024-03-15 09:03] LABS: INR 1.3 (0.9-1.3); Prothrombin Time 15.5 SECONDS (9.4-12.5)
[2024-03-15 09:19] LABS: Albumin 4.2 g/dL (3.5-5.0); BUN Creatinine Ratio 18.1 (6-22); Blood Urea Nitrogen 45 mg/dL (9-20); Calcium 9.7 mg/dL (8.4-10.2); Carbon Dioxide 29 mmol/L (22-32); Chloride 103 mmol/L (98-107); Estimated Glomerular Filt Rate 28 mL/min (>60); Glucose 92 mg/dL (80-110); HEMOLYSIS < 15 (0-50); Phosphorous 3.1 mg/dL (2.3-3.7); Potassium 4.2 mmol/L (3.4-5.1); Sodium 136 mmol/L (137-145)
[2024-03-15 09:27] LABS: Creatinine Urine Random 61.73 mg/dL; Protein (Total) Urine Random 38 mg/dL (0-12); Protein Creatinine Ratio Urine 0.61 GRAM/24H
[2024-03-16 08:18] LABS: Sirolimus 4.1 ng/mL (3.0-20.0)
== END ==
LOC: LAB 07:38
PROVIDERS: PCP Internal Medicine Nephrology; Referring Provider Internal Medicine Nephrology; Visit Provider Internal Medicine Nephrology
DX: Z94.0 Kidney transplant status (principal)
CPT/HCPCS: 36415; 80069; 80195; 82570; 84156; 85025; 85610

== ENCOUNTER → 2024-09-17 07:44 | Outpatient (CLI) | payer OTHER, SELFPAY ==
[2024-09-17 08:43] LABS: Add Manual Diff / Slide Review NO; Basophils Absolute Auto 0 /uL (0-100); Basophils Percent Auto 0.8 % (0-2); Eosinophils Absolute Auto 100 /uL (0-450); Eosinophils Percent Auto 1.5 % (2-4); Hemoglobin 11.9 g/dL (13.5-17.5); Lymphocytes Absolute Auto 1900 /uL (1100-4500); Lymphocytes Percent Auto 40.3 % (25-40); Mean Corpuscular HGB Conc 32.3 % (30-36); Mean Corpuscular Volume 83.5 fL (80-100); Monocytes Absolute Auto 800 /uL (0-900); Monocytes Percent Auto 16.9 % (3-14); Neutrophils Absolute Auto 1900 /uL (1500-7000); Neutrophils Percent Auto 40.5 % (50-75); Platelet Count 248 X10^3/uL (150-400); Red Blood Cell Count 4.43 X10^6/uL (4.5-5.9); Red Cell Distribution Width 15.3 % (11.6-14.8); White Blood Cell Count 4.7 X10^3/uL (4.5-11.0)
[2024-09-17 09:07] LABS: INR 2.8 (0.9-1.3); Prothrombin Time 30.9 SECONDS (9.4-12.5)
[2024-09-17 09:13] LABS: Albumin 3.9 g/dL (3.5-5.0); BUN Creatinine Ratio 18.8 (6-22); Blood Urea Nitrogen 54 mg/dL (9-20); Calcium 9.5 mg/dL (8.4-10.2); Carbon Dioxide 27 mmol/L (22-32); Chloride 104 mmol/L (98-107); Estimated Glomerular Filt Rate 24 mL/min (>60); Glucose 96 mg/dL (80-110); HEMOLYSIS < 15 (0-50); Phosphorous 3.3 mg/dL (2.3-3.7); Potassium 3.8 mmol/L (3.4-5.1); Sodium 135 mmol/L (137-145)
[2024-09-17 09:30] LABS: Creatinine Urine Random 63.24 mg/dL; Protein (Total) Urine Random 32 mg/dL (0-12)
[2024-09-18 06:36] LABS: Sirolimus 4.8 ng/mL (3.0-20.0)
== END ==
PROVIDERS: PCP Internal Medicine Nephrology; Referring Provider Internal Medicine Nephrology; Visit Provider Internal Medicine Nephrology
DX: Z94.0 Kidney transplant status (principal)
CPT/HCPCS: 36415; 80069; 80195; 82570; 84156; 85025; 85610

== ENCOUNTER → 2024-10-08 07:48 | Outpatient (CLI) | payer OTHER, SELFPAY ==
[2024-10-08 08:22] LABS: Hematocrit 38.8 % (41-53); Hemoglobin 12.5 g/dL (13.5-17.5); Mean Corpuscular HGB Conc 32.1 % (30-36); Mean Corpuscular Hemoglobin 27.1 PG (26-34); Mean Corpuscular Volume 84.3 fL (80-100); Platelet Count 246 X10^3/uL (150-400); Red Blood Cell Count 4.61 X10^6/uL (4.5-5.9); Red Cell Distribution Width 15.6 % (11.6-14.8); White Blood Cell Count 5.3 X10^3/uL (4.5-11.0)
[2024-10-08 08:40] LABS: INR 1.9 (0.9-1.3); Prothrombin Time 21.7 SECONDS (9.4-12.5)
[2024-10-08 08:47] LABS: Creatinine Urine Random 64.83 mg/dL; Protein (Total) Urine Random 34 mg/dL (0-12); Protein Creatinine Ratio Urine 0.52 GRAM/24H
[2024-10-08 08:49] LABS: Albumin 4.1 g/dL (3.5-5.0); BUN Creatinine Ratio 20.2 (6-22); Blood Urea Nitrogen 47 mg/dL (9-20); Calcium 9.8 mg/dL (8.4-10.2); Carbon Dioxide 25 mmol/L (22-32); Chloride 105 mmol/L (98-107); Estimated Glomerular Filt Rate 30 mL/min (>60); Glucose 101 mg/dL (80-110); HEMOLYSIS < 15 (0-50); Phosphorous 3.5 mg/dL (2.3-3.7); Potassium 3.9 mmol/L (3.4-5.1); Sodium 138 mmol/L (137-145)
[2024-10-09 08:12] LABS: Sirolimus 3.9 ng/mL (3.0-20.0)
== END ==
PROVIDERS: PCP Internal Medicine Nephrology; Referring Provider Internal Medicine Nephrology; Visit Provider Internal Medicine Nephrology
DX: Z94.6 Bone transplant status (principal); Z94.0 Kidney transplant status; Z79.899 Other long term (current) drug therapy
CPT/HCPCS: 36415; 80069; 80195; 82570; 84156; 85027; 85610

== ENCOUNTER → 2025-01-07 07:31 | Outpatient (CLI) | payer OTHER, SELFPAY ==
[2025-01-07 08:00] LABS: Add Manual Diff / Slide Review NO; Basophils Absolute Auto 0 /uL (0-100); Basophils Percent Auto 0.3 % (0-2); Eosinophils Absolute Auto 100 /uL (0-450); Eosinophils Percent Auto 2.4 % (2-4); Hematocrit 39.4 % (41-53); Hemoglobin 12.9 g/dL (13.5-17.5); Lymphocytes Absolute Auto 2300 /uL (1100-4500); Lymphocytes Percent Auto 36.9 % (25-40); Mean Corpuscular HGB Conc 32.7 % (30-36); Mean Corpuscular Hemoglobin 27.6 PG (26-34); Mean Corpuscular Volume 84.2 fL (80-100); Monocytes Absolute Auto 900 /uL (0-900); Monocytes Percent Auto 15.1 % (3-14); Neutrophils Absolute Auto 2800 /uL (1500-7000); Neutrophils Percent Auto 45.3 % (50-75); Platelet Count 230 X10^3/uL (150-400); Red Blood Cell Count 4.67 X10^6/uL (4.5-5.9); White Blood Cell Count 6.1 X10^3/uL (4.5-11.0)
[2025-01-07 08:08] LABS: INR 2.4 (0.9-1.3); Prothrombin Time 26.2 SECONDS (9.4-12.5)
[2025-01-07 08:14] LABS: Creatinine Urine Random 75.48 mg/dL; Protein (Total) Urine Random 37 mg/dL (0-12); Protein Creatinine Ratio Urine 0.49 GRAM/24H
[2025-01-07 08:17] LABS: Albumin 4.4 g/dL (3.5-5.0); BUN Creatinine Ratio 19.8 (6-22); Blood Urea Nitrogen 51 mg/dL (9-20); Calcium 9.5 mg/dL (8.4-10.2); Carbon Dioxide 23 mmol/L (22-32); Chloride 105 mmol/L (98-107); Estimated Glomerular Filt Rate 27 mL/min (>60); Glucose 104 mg/dL (80-110); HEMOLYSIS < 15 (0-50); Sodium 135 mmol/L (137-145)
[2025-01-08 02:38] LABS: Sirolimus 4.5 ng/mL (3.0-20.0)
== END ==
PROVIDERS: PCP Internal Medicine Nephrology; Referring Provider Internal Medicine Nephrology; Visit Provider Internal Medicine Nephrology
DX: Z94.0 Kidney transplant status (principal)
CPT/HCPCS: 36415; 80069; 80195; 82570; 84156; 85025; 85610